=== PATIENT | male | born 1955 | race Caucasian/White ===

== ENCOUNTER 2016-11-13 07:22 | Emergency (ER) | payer OTHER ==
[2016-11-13 07:24] VITALS: BP 136/90
[2016-11-13] MEDS ORDERED: Polyvinyl Alcohol 1.4% Ophth Soln 15 ML Bottle EYEBOTH ONE (08:01)
[2016-11-13] MEDS ORDERED: Tetracaine HCl/PF 0.5% 4 ML Bottle EYERT ONE (08:04)
--- NOTE | 2016-11-13 08:25 | EDM.PDOC ---
ED HPI GENERAL MEDICAL PROBLEM - General Chief Complaint: Eye Problems Stated Complaint: R eye pain Time Seen by Provider: 11/13/16 07:55 Source of Information: Reports: Patient History Limitations: Reports: No Limitations - History of Present Illness INITIAL COMMENTS - FREE TEXT/NARRATIVE: Patient is a 60-year-old gentleman who works at [employer] seen today with chief complaint of right eye pain discomfort states that this started at 3:00 while working and progressively got worse as the day went by patient seen and examined examination under fluorescent lighting revealed a scratch on the cornea about 1 cm round superficial at 2:00 Onset: Today Duration: Hour(s): Location: Reports: Other (Right eye) Quality: Reports: Other (Scratching) Severity: Moderate Improves with: Reports: Other (After being flushed at [employer] by the nurse) Worsens with: Reports: None Context: Reports: Activity (Work) Associated Symptoms: Reports: Other (Right eye pain) Right Eye Pain Score (Numeric/FACES): 3 - Related Data Allergies Allergy/AdvReac Type Severity Reaction Status Date / Time No Known Allergies Allergy Verified 11/13/16 07:24 Home Meds: Home Meds Gentamicin [Gentak 0.3% Ophth Oint] 1 gm EYERT TID #0 tube 11/13/16 [Rx] Ibuprofen [Motrin] 200 mg PO Q6H PRN 11/13/16 [History] Past Medical History HEENT History: Reports: Other (See Below) Other HEENT History: Tinnitus Musculoskeletal History: Reports: Other (See Below) Other Musculoskeletal History: Clavical Fracture - Infectious Disease History Infectious Disease History: Reports: Chicken Pox, Measles, Mumps Social & Family History - Tobacco Use Smoking Status *Q: Never Smoker - Caffeine Use Caffeine Use: Reports: Coffee, Soda, Tea - Alcohol Use Days Per Week of Alcohol Use: 5 Number of Drinks Per Day: 2 Total Drinks Per Week: 10 - Recreational Drug Use Recreational Drug Use: No ED ROS GENERAL - Review of Systems Review Of Systems: See Below Constitutional: Reports: No Symptoms HEENT: Reports: No Symptoms Respiratory: Reports: No Symptoms Cardiovascular: Reports: No Symptoms Endocrine: Reports: No Symptoms GI/Abdominal: Reports: No Symptoms : Reports: No Symptoms Musculoskeletal: Reports: No Symptoms Skin: Reports: No Symptoms Neurological: Reports: No Symptoms Psychiatric: Reports: No Symptoms ED EXAM GENERAL W FULL EYE - Physical Exam Exam: See Below Exam Limited By: No Limitations General Appearance: Alert, WD/WN, No Apparent Distress Eye Exam: Right Eye: Corneal Abrasion (1 mm at 2:00), Bilateral Eye: Abnormal EOM, Abnormal Pupil, Conjunctival Injection (No conjunctival injection), PERRL Eyelids: Right: Infraorbital Anesthesia (Tetracaine applied), Bilateral: Normal Appearance Conjunctiva & Sclera: Bilateral: Normal Appearance Cornea Exam: Right: Corneal Ulcer (1 mm superficial 2:00 right eye), Examined with Flourescein Extraocular Movements: Bilateral: Intact Pupillary Size: Bilateral: 2 mm Pupillary Reaction: Bilateral: Brisk Ears: Normal External Exam Nose: Normal Inspection Throat/Mouth: Normal Inspection Neck: Normal Inspection Respiratory/Chest: No Respiratory Distress, Lungs Clear, Normal Breath Sounds Cardiovascular: Normal Peripheral Pulses, Regular Rate, Rhythm, No Murmur GI/Abdominal: No Abnormal Bruit, No Mass Rectal (Males) Exam: Normal Exam Back Exam: Normal Inspection, Full Range of Motion, Paraspinal Tenderness Extremities: Normal Inspection, Normal Range of Motion, Non-Tender, Normal Capillary Refill Neurological: Alert Psychiatric: Normal Affect, Normal Mood Skin Exam: Warm, Dry, Intact, Normal Color, No Rash Lymphatic: No Adenopathy Course - Vital Signs Last Recorded V/S: Last Vital Signs Temp 98.3 F 11/13/16 07:24 Pulse 76 11/13/16 07:24 Resp 16 11/13/16 07:24 BP 136/90 11/13/16 07:24 Pulse Ox 97 11/13/16 07:24 - Orders/Labs/Meds Orders: Active Orders 24 hr Category Date Time Status Gentamicin [Gentak 0.3% Ophth Oint] Med 11/13/16 12:00 Ordered 1 gm EYERT TID Medication Orders Gentamicin Sulfate (Gentak 0.3% Ophth Oint) 1 gm EYERT TID EARNEST Meds: Medications Generic Name Dose Route Start Last Admin Trade Name Freq PRN Reason Stop Dose Admin Gentamicin Sulfate 1 gm 11/13/16 12:00 Gentak 0.3% Ophth Oint EYERT TID EARNEST Discontinued Medications Generic Name Dose Route Start Last Admin Trade Name Freq PRN Reason Stop Dose Admin Artificial Tears 5 ml 11/13/16 08:01 Liquitears 1.4% Ophth Soln EYEBOTH 08/09/17 08:02 ONETIME ONE Tetracaine HCl 1 ml 11/13/16 08:04 Tetracaine 0.5% Steri-Unit Kristen EYERT 11/13/16 08:05 ASDIRECTED ONE Departure - Departure Time of Disposition: 08:32 Disposition: Home, Self-Care 01 Condition: Good Clinical Impression: Corneal abrasion Qualifiers: Encounter type: initial encounter Laterality: right Qualified Code(s): S05.01XA - Injury of conjunctiva and corneal abrasion without foreign body, right eye, initial encounter - Discharge Information Forms: ED Department Discharge Care Plan Goals: Patient will be sent home he is to take his patch off tomorrow in the morning and apply half an inch of gentamicin ophthalmic ointment to right eye 4 times a day for 7 days - My Orders Last 24 Hours: My Active Orders 11/13/16 12:00 Gentamicin [Gentak 0.3% Ophth Oint] 1 gm EYERT TID - Assessment/Plan Last 24 Hours: My Active Orders 11/13/16 12:00 Gentamicin [Gentak 0.3% Ophth Oint] 1 gm EYERT TID
== END 2016-11-13 08:45 | disposition home or self-care (01) ==
LOC: LL.ED 07:22
DX: S05.01XA Injury of conjunctiva and corneal abrasion without foreign body, right eye, initial encounter (principal); X58.XXXA Exposure to other specified factors, initial encounter
CPT/HCPCS: 99283; A9270